=== PATIENT | female | born 1950 | race Caucasian/White ===

== ENCOUNTER 2018-09-19 13:12 | Emergency (ER) | payer OTHER ==
[2018-09-19] MEDS ORDERED: SUCCINYLCHOLINE CHLORIDE VIAL 200 MG/10 ML VIAL IV STA (13:22)
[2018-09-19] MEDS ORDERED: SODIUM CHLORIDE 0.9% 500 ML 500 ML IV STA (13:25)
[2018-09-19] MEDS ORDERED: CHLORHEXIDINE GLUCONATE 15 ML CUP MUCOUS MEM ONE (13:25)
[2018-09-19 13:32] LABS: Anisocytosis Slight; Basophils # (A) 0.1 k/uL (0-0.2); Basophils % (A) 1 %; Eosinophils # (A) 0.1 k/uL (0-0.7); Eosinophils % (A) 1 %; HCT 39.5 % (34.0-46.0); HGB 12.9 gm/dL (11.4-16.0); Hypochromasia Slight; Lymphocytes # (A) 4.7 k/uL (1.0-4.8); Lymphocytes % (A) 36 %; MCH 31.1 pg (25.0-35.0); MCHC 32.6 g/dL (31.0-37.0); MCV 95.5 fL (80.0-100.0); Macrocytosis Slight; Mean Platelet Volume 6.8; Monocytes # (A) 0.5 k/uL (0-1.0); Monocytes % (A) 4 %; Neutrophils # (A) 7.2 k/uL (1.3-7.7); Neutrophils % (A) 55 %; Platelet Count 337 k/uL (150-450); Poikilocytosis Slight; RBC 4.14 m/uL (3.80-5.40); WBC 13.1 k/uL (3.8-10.6)
--- NOTE | 2018-09-19 13:33 | ED ---
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 No further history on that is available at this time. Patient was with her when she became altered mentally and he called EMS when they arrived the patient had some facial drooping and some weakness on the left side shortly thereafter the patient vomited and had a seizure and became incontinent of urine and stool. Patient has remained unresponsive since. Patient has no gag reflex - Related Data Home Medications Medication Instructions Recorded Confirmed Unable To Assess [Unable to Assess] 09/19/18 09/19/18 Allergies Allergy/AdvReac Type Severity Reaction Status Date / Time Unable to Assess Allergy Verified 09/19/18 13:19 Review of Systems ROS Statement: Those systems with pertinent positive or pertinent negative responses have been documented in the HPI. ROS Other: All systems not noted in ROS Statement are negative. General Exam - General Exam Comments Initial Comments: GENERAL: Patient is well-developed and well-nourished. Patient is nontoxic and well- hydrated. ENT: Neck is soft and supple. No significant lymphadenopathy is noted. Oropharynx is clear. Moist mucous membranes. Neck has full range of motion without eliciting any pain. EYES: The sclera were anicteric and conjunctiva were pink and moist. Unable to check for extraocular motion. Patient is not responding to any commands. Patient's eyes are both deviated to the left. PULMONARY: Unlabored respirations. Good breath sounds bilaterally. No audible rales rhonchi or wheezing was noted. CARDIOVASCULAR: There is a regular rate and rhythm without any murmurs gallops or rubs. ABDOMEN: Nondistended SKIN: Skin is clear with no lesions or rashes and otherwise unremarkable. NEUROLOGIC: She has completely unresponsive however her eyes are gazing to the left. MUSCULOSKELETAL: No lower extremity swelling or edema. PSYCHIATRIC: Unable to evaluate Course Vital Signs 09/19/18 13:15 Temperature 98.3 F Pulse Rate 80 Respiratory 12 Rate Blood Pressure 150/95 O2 Sat by Pulse 96 Oximetry Procedures - Intubation Sedative: Versed Paralytic: Rocuronium Laryngoscope: Roland Size: 3 ET Tube Size: 8 ET Tube Uncuffed: No Tube Secured Location: teeth Tube Placement Confirmation: visualized tube passing through cords, equal breath sounds bilaterally, no breath sounds over epigastrium, confirmation by capnometry Patient Tolerated Procedure: well Intubation Complications: none Medical Decision Making - Medical Decision Making arrived on scene I spoke with the and he indicated that the patient was walking out of the store and stated that she seen some [place] light colors out of her eye they got in the car in the car she stiffened up and then became unresponsive he stated that it seems sort of like a seizure to him. When EMS arrived they noticed some left-sided facial drooping that the did not appreciate. At that point in time EMS stated that she was able to times smiling and did raise her eyebrows both eyebrows raised equally. After this the patient again stiffened up became unresponsive vomited and became incontinent of stool and urine. Code stroke was called overhead I spoke with Dr. Philip prior to the CAT scan's. EKG shows normal sinus rhythm at 76 bpm AR interval is 152 QRS is 92 QT interval 400 QTC is 450 per patient's EKG shows no ST segment elevation or depression or T-wave abdomen is noted. Dr. Philip looked at the CT of the brain and CTA of the head neck and it showed no acute abnormalities. Patient started to become awake and alert and was able to follow basic commands. There was slight at this time that the patient could probably be extubated and the patient was loaded with Dilantin secondary to the seizure activity. We were going to send the patient to [facility] but family requested [facility] and [facility] I extubated the patient. - Lab Data Result diagrams: 09/19/18 13:19 09/19/18 13:19 Lab Results 09/19/18 09/19/18 09/19/18 Range/Units 13:19 13:19 13:19 WBC (3.8-10.6) k/uL RBC (3.80-5.40) m/uL Hgb (11.4-16.0) gm/dL Hct (34.0-46.0) % MCV (80.0-100.0) fL MCH (25.0-35.0) pg MCHC (31.0-37.0) g/dL RDW (11.5-15.5) % Plt Count (150-450) k/uL Neutrophils % % Lymphocytes % % Monocytes % % Eosinophils % % Basophils % % Neutrophils # (1.3-7.7) k/uL Lymphocytes # (1.0-4.8) k/uL Monocytes # (0-1.0) k/uL Eosinophils # (0-0.7) k/uL Basophils # (0-0.2) k/uL Hypochromasia Poikilocytosis Anisocytosis Macrocytosis PT 10.1 (9.0-12.0) sec INR 0.9 (<1.2) APTT 22.3 (22.0-30.0) sec Sodium 139 (137-145) mmol/L Potassium 2.7 L* (3.5-5.1) mmol/L Chloride 105 (98-107) mmol/L Carbon Dioxide 18 L (22-30) mmol/L Anion Gap 16 mmol/L BUN 11 (7-17) mg/dL Creatinine 0.58 (0.52-1.04) mg/dL Est GFR (CKD-EPI)AfAm >90 (>60 ml/min/1.73 sqM) Est GFR (CKD-EPI)NonAf >90 (>60 ml/min/1.73 sqM) Glucose 98 (74-99) mg/dL POC Glucose (mg/dL) (75-99) mg/dL POC Glu [employer] Coordinator ID Calcium 8.5 (8.4-10.2) mg/dL Total Bilirubin 0.9 (0.2-1.3) mg/dL AST 21 (14-36) U/L ALT 24 (9-52) U/L Alkaline Phosphatase 97 (38-126) U/L Total Creatine Kinase 23 L (30-135) U/L CK-MB (CK-2) 1.4 (0.0-2.4) ng/mL CK-MB (CK-2) Rel Index 6.1 Troponin I 0.018 (0.000-0.034) ng/mL Total Protein 6.0 L (6.3-8.2) g/dL Albumin 3.6 (3.5-5.0) g/dL 09/19/18 09/19/18 Range/Units 13:19 13:53 WBC 13.1 H (3.8-10.6) k/uL RBC 4.14 (3.80-5.40) m/uL Hgb 12.9 (11.4-16.0) gm/dL Hct 39.5 (34.0-46.0) % MCV 95.5 (80.0-100.0) fL MCH 31.1 (25.0-35.0) pg MCHC 32.6 (31.0-37.0) g/dL RDW 17.0 H (11.5-15.5) % Plt Count 337 (150-450) k/uL Neutrophils % 55 % Lymphocytes % 36 % Monocytes % 4 % Eosinophils % 1 % Basophils % 1 % Neutrophils # 7.2 (1.3-7.7) k/uL Lymphocytes # 4.7 (1.0-4.8) k/uL Monocytes # 0.5 (0-1.0) k/uL Eosinophils # 0.1 (0-0.7) k/uL Basophils # 0.1 (0-0.2) k/uL Hypochromasia Slight Poikilocytosis Slight Anisocytosis Slight Macrocytosis Slight PT (9.0-12.0) sec INR (<1.2) APTT (22.0-30.0) sec Sodium (137-145) mmol/L Potassium (3.5-5.1) mmol/L Chloride (98-107) mmol/L Carbon Dioxide (22-30) mmol/L Anion Gap mmol/L BUN (7-17) mg/dL Creatinine (0.52-1.04) mg/dL Est GFR (CKD-EPI)AfAm (>60 ml/min/1.73 sqM) Est GFR (CKD-EPI)NonAf (>60 ml/min/1.73 sqM) Glucose (74-99) mg/dL POC Glucose (mg/dL) 82 (75-99) mg/dL POC Glu Marine Operations Coordinator ID Horowitz, Chris Calcium (8.4-10.2) mg/dL Total Bilirubin (0.2-1.3) mg/dL AST (14-36) U/L ALT (9-52) U/L Alkaline Phosphatase (38-126) U/L Total Creatine Kinase (30-135) U/L CK-MB (CK-2) (0.0-2.4) ng/mL CK-MB (CK-2) Rel Index Troponin I (0.000-0.034) ng/mL Total Protein (6.3-8.2) g/dL Albumin (3.5-5.0) g/dL Critical Care Time Critical Care Time: Yes Total Critical Care Time: 35 Disposition Clinical Impression: New onset seizure, Hypokalemia Disposition: OTHER INSTITUTION NOT DEFINED Referrals: None,Stated [Primary Care Provider] - 1-2 days Time of Disposition: 14:23 - Out of Hospital Transfer - Req. Specs Out of Hospital Transfer - Requested Specifics: Other Emergency Center ([facility])
[2018-09-19 13:39] LABS: INR 0.9 (<1.2); Partial Thromboplastin Time 22.3 sec (22.0-30.0); Prothrombin Time 10.1 sec (9.0-12.0)
[2018-09-19 13:44] LABS: ALT 24 U/L (9-52); AST 21 U/L (14-36); Albumin 3.6 g/dL (3.5-5.0); Alkaline Phosphatase 97 U/L (38-126); Anion Gap 16 mmol/L; Blood Urea Nitrogen 11 mg/dL (7-17); Calcium 8.5 mg/dL (8.4-10.2); Carbon Dioxide 18 mmol/L (22-30); Chloride 105 mmol/L (98-107); Glucose 98 mg/dL (74-99); Sodium 139 mmol/L (137-145); Total Bilirubin 0.9 mg/dL (0.2-1.3)
[2018-09-19] MEDS ORDERED: PHENYTOIN SODIUM INJ 50 MG/ML 2 ML VIAL IV STA (13:48)
[2018-09-19] MEDS ORDERED: PHENYTOIN SODIUM INJ 1,000 MG in SODIUM CHLORIDE 0.9% 100 ML IVPB STA (13:50)
[2018-09-19 14:00] LABS: Potassium 2.7 mmol/L (3.5-5.1)
[2018-09-19 14:05] LABS: Creatine Kinase MB 1.4 ng/mL (0.0-2.4); Troponin I 0.018 ng/mL (0.000-0.034)
[2018-09-19] MEDS ORDERED: ROCURONIUM BROMIDE 10 MG/ML 10 ML VIAL IV STA (14:08)
[2018-09-19] MEDS ORDERED: MIDAZOLAM 1 MG/ML 5 ML VIAL IV STA (14:09)
[2018-09-19 14:15] LABS: Glucose,Whole Blood 82 mg/dL (75-99)
--- NOTE | 2018-09-19 14:16 | CT ---
EXAMINATION TYPE: CT brain wo con for TPA DATE OF EXAM: 09/19/2018 COMPARISON: None HISTORY: 67-year-old female Seizure, recent brain surgery, neurologic deficits, unresponsive TECHNIQUE: Examination was done in axial plane without intravenous contrast. Coronal and sagittal r econstructions performed. CT DLP: 1214.8 mGycm Automated exposure control for dose reduction was used. FINDINGS: Right parietal approach [employer] shunt catheter in the right paramedian and right lateral ventricle. Mild central cerebral atrophy with mild prominence to the ventricular system. There are resection changes along the lower posterior occiput and underlying posterior right cerebell ar hemisphere. No evidence for acute intracranial hemorrhage, acute ischemic change, mass, mass effect, midline shif t, or extra-axial fluid collection. No effacement of basal subarachnoid cisterns or cerebral sulci. G ray-white matter differentiation is maintained. An ET tube is present. Lobulated mucosal thickening floor of the left maxillary sinus. Right mastoid air cells slightly hypoplastic. Mastoid air cells well pneumatized. Orbits and globes are intact. IMPRESSION: 1. Prior resection changes along the posterior right cerebellar hemisphere. 2. Right parietal approach [employer] shunt catheter with tip in the paramedian right lateral ventricle. 3. Mild ventricular prominence may be secondary to central cerebral atrophy. Ventricular size can be compared to any available outside priors. 4. No acute intracranial abnormality is identified.
--- NOTE | 2018-09-19 14:22 | CT ---
EXAMINATION TYPE: CODE STROKE: CTA head neck DATE OF EXAM: 09/19/2018 COMPARISON: Brain same day HISTORY: 67-year-old female Seizure, recent brain surgery, unresponsive TECHNIQUE: Contiguous axial scanning of the head and neck performed with IV Contrast, patient injecte d with 65 mL of Isovue 370. Coronal/sagittal MIP reconstructions performed. 3-D reconstructions gener ated on a dedicated independent workstation. CT DLP: 372.6 mGycm Automated exposure control for dose reduction was used. FINDINGS: Neck: Conventional arch vessel branching anatomy. Brachiocephalic and right common carotid arteries are patent. The proximal right common carotid arter y is tortuous. The right carotid bifurcation and internal carotid artery are patent. The left common carotid artery, carotid bifurcation, and left internal carotid artery are patent. The vertebral arteries appear codominant and patent throughout the course. The patient is intubated. Brain: There is mild fluid overlying the posterior right cerebellar resection cavity within the inferior sca lp soft tissues. The V4 segment left vertebral artery is smaller in caliber than the right. Congenital variation is king ggested. The bilateral vertebral and basilar arteries are patent. Mild atherosclerotic calcifications within the carotid siphons. No significant stenosis, arterial occ lusion, or aneurysmal changes identified. IMPRESSION: 1. NECK: WIDELY PATENT CAROTID AND VERTEBRAL ARTERIES OF THE NECK. 2. HEAD: NO LARGE VESSEL INTRACRANIAL ARTERIAL OCCLUSION, SIGNIFICANT STENOSIS, OR ANEURYSMAL CHANGE IS SEEN.
[2018-09-19] MEDS ORDERED: POTASSIUM CHLORIDE 20 MEQ in WATER FOR INJECTION 1 100ML.BAG IVPB STA (14:30)
--- NOTE | 2018-09-19 14:30 | XR ---
EXAMINATION TYPE: XR chest 1V DATE OF EXAM: 09/19/2018 COMPARISON: NONE HISTORY: Post intubation. TECHNIQUE: Single frontal view of the chest is obtained. FINDINGS: Right lung is somewhat limited evaluation as the a hand overlies the right hemithorax. Ove rall there are low lung volumes. Mild multilevel degenerative changes of the spine are noted. There i s no focal air space opacity, pleural effusion, or pneumothorax seen. Endotracheal tube appears sati sfactorily placed although slightly low-lying and oriented towards the right mainstem bronchus. This terminates approximately 1.4 cm from the yissel. The cardiac silhouette size is within normal limits. IMPRESSION: Endotracheal tube appears satisfactory although at the caudal limits of normal. Attentio n on follow-up exams to ensure this does not advance.
[2018-09-19 16:31] VITALS: TEMP 97.7
[2018-09-19 16:32] VITALS: BP 106/61; PULSE 89; RESP 12
== END 2018-09-19 16:30 | disposition short-term general hospital (02) ==
LOC: EC 13:12
DX: E87.6 Hypokalemia (principal); R56.9 Unspecified convulsions
CPT/HCPCS: 36415; 94002; 93005; 80053; 82550; 82553; 84484; 85025; 85610; 85730; 71045; 70496; 70450; 70498; 99291; 31500; 96365 ×2; 96375 ×2; J0330; J1165; J3480; J2250; Q9967